=== PATIENT | male | born 1950 | race Caucasian/White ===

== ENCOUNTER → 2023-09-18 13:44 | Outpatient (REF) | payer MEDICARE, OTHER, SELFPAY | LOC: RAD 13:44 | PROVIDERS: ATTENDING PHYSICIAN Internal Medicine | DX: M25.552 Pain in left hip (principal) | CPT/HCPCS: 73502 ==

== ENCOUNTER → 2024-02-27 11:04 | Outpatient (REF) | payer MEDICARE, OTHER, SELFPAY | LOC: RCS 11:04 | PROVIDERS: ATTENDING PHYSICIAN Nurse Practitioner; FAMILY PHYSICIAN Internal Medicine | DX: Z95.2 Presence of prosthetic heart valve (principal) | CPT/HCPCS: 93306 ==

== ENCOUNTER 2024-03-26 23:53 | Emergency (ER) | payer MEDICARE, OTHER, SELFPAY ==
[2024-03-26 23:56] VITALS: BP 155/69
--- NOTE | 2024-03-27 00:03 | ED.GENMED ---
Addendum entered and electronically signed by Silvina Burgess NP 03/30/24 09:24:
Spoke with pt daughter who states pt has had similar symptoms since discharge, has f/u appointment today with [facility].
Original Note:
History of Present Illness
General
Chief Complaint: Blood Pressure Problem
Source: patient and family (daughter at bedside to translate)
Exam Limitations: none
Time Seen by Provider: 03/27/24 00:03
Nursing documentation reviewed up to this point in time: agreed with
History of Present Illness
History of Present Illness:
74-year-old male with history of aortic valve replacement 2020, CAD, cardiac stents 2017, HTN, HLD, BPH, NIDDM, depression presents with h/o chest pain 5/10 'like someone squeezing my heart' started 03/25 took NTG and Clonidine 0.1 mg and took his BP
which remained normal. 5 hours ago (8 p.m.) developed similar CP and took NTG @ 8 p.m and 9:30 p.m. and Clonidine 0.1 mg and BP was high 195/95 and 185/90. He is usually normotensive 130/. Pain went from 8/10 to now 6/10. Denies n/v/d, denies
diaphoresis, lightheadedness. Denies SOB or abdominal pain.
Pt states pain has been occurring at rest. No exertional component as he was in the pool yesterday with no pain, walking several times daily with no pain.
Past History
Past History
ED Past Medical History: CAD, HTN, Hypercholesterolemia, NIDDM, Other (Colon polyps with GI bleed after removal, stopped blood thinners after that) and Other
ED Past Surgical History: Appendectomy, Cardiac (Stents X 2, TAVR) and Other (hernia repair)
Social History
Tobacco: Former smoker
Alcohol: Occasional
Personal:
Living: with family
Review of Systems
Review of Systems
Allergies reviewed?: Yes
All Other Systems: ROS reviewed and negative except as documented in HPI and ROS
Constitutional: Denies fever or fatigue
Respiratory: Denies trouble breathing
Cardiac: Reports chest pain; Denies diaphoresis, palpitations or syncope
ABD/GI: Denies abdominal pain, nausea, vomiting, diarrhea or anorexia
: Reports difficulty voiding (chronic); Denies dysuria or frequency
Musculoskeletal: Reports no symptoms
Skin: Reports no symptoms
Neurological: Reports no symptoms
Phy Exam
Physical Exam
Physical Exam:
GENERAL: No acute distress. A&Ox3.
CONSTITUTIONAL: Afebrile.
EYES: PERRL, conjunctivae normal
ENMT: moist mucus membranes, Pharynx nl
RESPIRATORY: Regular respirations, nonlabored, lungs clear.
CARDIOVASCULAR: Regular rate and rhythm, no murmurs, no rubs.
GI: Soft, nontender, normal BS
MUSCULOSKELETAL: Moves with ease. Well perfused. No edema
SKIN: Warm, dry, pink
PSYCH: Normal mood and affect. Well kept, interactive and appropriate
NEUROLOGIC: Awake, alert and oriented. No focal neurological deficits
Course
Orders/Labs/Results
Orders:
Orders
03/27/24 00:00
Electrocardiogram (*1) Urgent
Reason for Study: Other
Other Reason for Exam: Respiratory Distress
Cardiac Monitoring- Treatment ONCE
EKG- Treatment ONCE
IV Insert/Care/Rem.- Treatment PRN
CR Chest - 2 Views Urgent
Comment:
Reason For Exam: respiratory distress
O2 Therapy [RESP] Urgent
Titrate/Wean O2 to maintain O2 sat greater than (%): 93
Special Instructions: TO MAINTAIN CONTINUOUS O2 SATS >/= 93%
Pulse Ox/cont/shift [RESP] Urgent
Quantity: 1
Special Instructions: continuous pulse ox
03/27/24 00:16
Complete Blood Count/With Diff Urgent
Comprehensive Metabolic Panel Urgent
NT-proBNP Urgent
Troponin I Urgent
03/27/24 01:39
Acetaminophen [Tylenol] 650 mg .ROUTE .STK-MED ONE
03/27/24 01:41
Acetaminophen [Tylenol] 650 mg PO NOW STA
Abnormal Lab Results
03/27/24
00:16
RBC 3.84 L 10^6/uL
(4.70-6.10)
Hgb 12.5 L g/dL
(13.0-18.0)
Hct 35.5 L %
(39.0-52.0)
MCH 32.6 H pg
(27.0-31.0)
Abs Immat Gran (auto) 0.1 H 10^3/uL
(0-0.05)
Immature Gran % 0.7 H %
(0-0.5)
Glucose 142 H mg/dl
(70-99)
Total Protein 6.1 L g/dl
(6.3-8.2)
03/27/24 00:16
03/27/24 00:16
Vital Signs
Initial and Last Documented VS:
Initial Vital Signs
Temp Pulse Resp BP Pulse Ox
98.2 F 52 20 155/69 97
03/26/24 23:56 03/26/24 23:56 03/26/24 23:56 03/26/24 23:56 03/26/24 23:56
Last Documented Vital Signs
Temp Pulse Resp BP Pulse Ox
98.2 F 52 25 136/74 95
03/26/24 23:56 03/27/24 01:45 03/27/24 01:45 03/27/24 01:30 03/27/24 01:30
MDM/Problems Addressed
Differential Diagnosis Includes:
NH, angina, unstable angina, GERD
MDM/Problems Addressed:
74-year-old male with history of TAVR 2020, CAD, cardiac stents 2017, HTN, HLD, BPH, NIDDM, GERD, depression presents with h/o chest pain 5/10 'like someone squeezing my heart' started 03/25 took NTG and Clonidine 0.1 mg and took his BP which remained
normal. 5 hours ago developed similar CP and took NTG @ 8 p.m and 9:30 p.m. and Clonidine 0.1 mg and BP was high 195/95 and 185/90. He is usually normotensive 130/. Pain went from 03/28 to now 01/26. Denies n/v/d, denies diaphoresis, lightheadedness.
Denies SOB or abdominal pain.
He does take his omeprazole daily
Pt states pain has been occurring at rest. No exertional component as he was in the pool yesterday with no pain, walking several times daily with no pain.
EKG: Sinus bradycardia heart rate 50
1:00 AM
CBC unremarkable
CMP unremarkable
Chest x-ray NAD
Troponin WNL
BP 143/61
Review of records: Patient had echocardiogram on 02/27/2024 which was unremarkable. EF 65 to 70%
1:20 AM:
Patient states chest pain is minimal at this time, 2/10 located just under his left nipple
Cardiac work appears completely unremarkable
Patient discussed with Dr. Pérez who agrees patient can be discharged home and his information was sent to the cardiac hotline
Patient and daughter are comfortable with this plan
Chronic conditions affecting care: DM, HTN and CAD
*Critical Care Note
Total Time (30-74mins, 75-104mins- exclusive of procedures): Not Applicable
ED Attending Note
-
Portions of this chart may have been created with voice recognition software.� Occasional wrong word or��sound alike� substitutions may have occurred due to the inherent limitations of voice recognition software.
Discharge Plan
Departure
Patient Disposition: Home (Routine Discharge)
Date of Disposition: 03/27/24
Time of Disposition: 01:25
Patient with high blood pressure during this ER visit?: No
Condition: Good
Discharge Problem:
Atypical chest pain
Instructions: Chest Pain That Is Not Caused by the Heart (DC), Chest Pain CBC Follow Up
Prescriptions:
No Action
atorvastatin 40 MG tablet
40 mg PO QPM
nifedipine 90 MG tablet extended release 24hr
90 mg PO DAILY Qty: 30 0RF
valsartan 320 MG tablet
320 mg PO QPM
acetaminophen 325 MG tablet
650 mg PO Q6HPRN PRN (Reason: mild pain, fever, headache) 0RF
clonidine HCl 0.1 mg Tablet
0.1 mg PO DAILY PRN (Reason: if SBP>160/80)
nitroglycerin 0.4 mg Tablet, Sublingual
0.4 mg SUBLINGUAL Q5-15M PRN (Reason: chest pain)
finasteride 5 mg Tablet
5 mg PO DAILY
cyanocobalamin (vitamin B-12) 1,000 mcg Tablet
1,000 mcg PO DAILY
metformin 500 mg Tablet
500 mg PO BID
ferrous sulfate 325 mg (65 mg iron) Tablet
325 mg PO DAILY
omeprazole 20 mg Capsule,Delayed Release(Dr/Ec)
20 mg PO DAILY
aspirin 81 mg Tablet,Chewable
81 mg PO DAILY
cholecalciferol (vitamin D3) [Vitamin D3] 50 mcg (2,000 unit) Capsule
50 mcg PO DAILY
metoprolol succinate 50 mg tablet extended release 24 hr
50 mg PO DAILY
Referrals:
Henrik Choe MD [Active] - As needed
NONE,* [Active] -
Activity Restrictions/Additional Instructions:
As we discussed, there is nothing in your workup here tonight that indicates you are having a heart attack or that the pain is being caused by your heart.
I sent your information to the cardiology group and someone should be contacting you later today or Saturday for a follow-up appointment.
Return here immediately for chest pain that gets worse or is associated with breaking out in a sweat, nausea or vomiting, feeling lightheaded or radiates to the back, neck or down the arm or feeling worse in any way.
Interventions
Interventions:
*Risk Screen - Suicide Last Done: 03/27/24 00:09
*General Assessment Last Done: 03/27/24 00:09
*Neglect/Abuse Screening Last Done: 03/27/24 00:09
ED- Fall Risk Assessment Last Done: 03/27/24 00:09
*ED COVID-19 Vaccine History Last Done: 03/27/24 00:09
*Nursing Disposition Last Done: 03/27/24 01:45
ED- Cardiac Assessment Last Done: 03/27/24 00:09
ED- Neurological Assessment Last Done: 03/27/24 00:09
ED- Pulmonary Assessment Last Done: 03/27/24 00:09
Discharge Date and Time
Discharge Date/Time: 03/27/24 01:45
Print Language: Egyptian
[2024-03-27 00:06] VITALS: BP 162/64
[2024-03-27 00:08] VITALS: BP 162/78
[2024-03-27 00:38] LABS: % Basophils 0.4 % (0-2); % Immature Granulocytes 0.7 % (0-0.5); % Monocytes 7.2 % (1.7-9.3); % Neutrophils 66.7 % (42.2-75.2); Absolute Eosinophils 0.1 10^3/uL (0-0.7); Absolute Immature Granulocytes 0.1 10^3/uL (0-0.05); Absolute Lymphocytes 1.6 10^3/uL (1.2-3.4); Absolute Monocytes 0.5 10^3/uL (0.1-0.6); Absolute Neutrophils 4.6 10^3/uL (1.4-6.5); Hematocrit 35.5 % (39.0-52.0); Hemoglobin 12.5 g/dL (13.0-18.0); Mean Corp Hgb Conc. 35.2 g/dL (33.0-37.0); Mean Corpuscular Hgb 32.6 pg (27.0-31.0); Mean Corpuscular Volume 92.4 fL (80.0-94.0); Mean Platelet Volume 9.8 fL (7.4-10.4); Nucleated Red Blood Cells % 0 % (-); Platelet Count 208 10^3/uL (130-400); Red Blood Cell Count 3.84 10^6/uL (4.70-6.10); White Blood Cell Count 6.9 10^3/uL (4.8-10.8)
[2024-03-27 00:42] VITALS: BP 156/62
[2024-03-27 00:43] LABS: ALT (SGPT) 17 U/L (0-50); AST (SGOT) 23 U/L (17-59); Albumin 4.1 g/dl (3.5-5.0); Alkaline Phosphatase 102 U/L (38-126); Blood Urea Nitrogen 19 mg/dl (9-20); Calcium 9.4 mg/dl (8.4-10.2); Carbon Dioxide 23 mmol/L (22-30); Chloride 106 mmol/L (98-107); Glucose 142 mg/dl (70-99); Potassium 4.1 mmol/L (3.5-5.1); Sodium 135 mmol/L (135-145); Total Bilirubin 0.2 mg/dl (0.2-1.3); Total Protein 6.1 g/dl (6.3-8.2); eGFR > 60.00
[2024-03-27 00:56] LABS: NT-proBNP 134 pg/ml; Troponin I < 0.012 ng/ml
[2024-03-27 01:00] VITALS: BP 143/61
[2024-03-27 01:30] VITALS: BP 136/74
[2024-03-27] MEDS: TYLENOL 650 MG PO (01:41)
--- NOTE | 2024-03-30 09:22 | ED.GENMED ---
History of Present Illness
General
Chief Complaint: Blood Pressure Problem
Time Seen by Provider: 03/27/24 00:03
Past History
Past History
ED Past Medical History: CAD, HTN, Hypercholesterolemia, NIDDM, Other (Colon polyps with GI bleed after removal, stopped blood thinners after that) and Other
ED Past Surgical History: Appendectomy, Cardiac (Stents X 2, TAVR) and Other (hernia repair)
Social History
Tobacco: Former smoker
Alcohol: Occasional
Personal:
Living: with family
Course
Orders/Labs/Results
Orders:
Orders
03/27/24 00:00
Electrocardiogram (*1) Urgent
Reason for Study: Other
Other Reason for Exam: Respiratory Distress
Cardiac Monitoring- Treatment ONCE
EKG- Treatment ONCE
IV Insert/Care/Rem.- Treatment PRN
CR Chest - 2 Views Urgent
Comment:
Reason For Exam: respiratory distress
O2 Therapy [RESP] Urgent
Titrate/Wean O2 to maintain O2 sat greater than (%): 93
Special Instructions: TO MAINTAIN CONTINUOUS O2 SATS >/= 93%
Pulse Ox/cont/shift [RESP] Urgent
Quantity: 1
Special Instructions: continuous pulse ox
03/27/24 00:16
Complete Blood Count/With Diff Urgent
Comprehensive Metabolic Panel Urgent
NT-proBNP Urgent
Troponin I Urgent
03/27/24 01:39
Acetaminophen [Tylenol] 650 mg .ROUTE .STK-MED ONE
03/27/24 01:41
Acetaminophen [Tylenol] 650 mg PO NOW STA
Abnormal Lab Results
03/27/24
00:16
RBC 3.84 L 10^6/uL
(4.70-6.10)
Hgb 12.5 L g/dL
(13.0-18.0)
Hct 35.5 L %
(39.0-52.0)
MCH 32.6 H pg
(27.0-31.0)
Abs Immat Gran (auto) 0.1 H 10^3/uL
(0-0.05)
Immature Gran % 0.7 H %
(0-0.5)
Glucose 142 H mg/dl
(70-99)
Total Protein 6.1 L g/dl
(6.3-8.2)
03/27/24 00:16
03/27/24 00:16
Vital Signs
Initial and Last Documented VS:
Initial Vital Signs
Temp Pulse Resp BP Pulse Ox
98.2 F 52 20 155/69 97
03/26/24 23:56 03/26/24 23:56 03/26/24 23:56 03/26/24 23:56 03/26/24 23:56
Last Documented Vital Signs
Temp Pulse Resp BP Pulse Ox
98.2 F 52 25 136/74 95
03/26/24 23:56 03/27/24 01:45 03/27/24 01:45 03/27/24 01:30 03/27/24 01:30
ED Attending Note
-
Portions of this chart may have been created with voice recognition software.� Occasional wrong word or��sound alike� substitutions may have occurred due to the inherent limitations of voice recognition software.
Discharge Plan
Departure
Patient Disposition: Home (Routine Discharge)
Date of Disposition: 03/27/24
Time of Disposition: 01:25
Patient with high blood pressure during this ER visit?: No
Condition: Good
Discharge Problem:
Atypical chest pain
Instructions: Chest Pain That Is Not Caused by the Heart (DC), Chest Pain CBC Follow Up
Prescriptions:
No Action
atorvastatin 40 MG tablet
40 mg PO QPM
nifedipine 90 MG tablet extended release 24hr
90 mg PO DAILY Qty: 30 0RF
valsartan 320 MG tablet
320 mg PO QPM
acetaminophen 325 MG tablet
650 mg PO Q6HPRN PRN (Reason: mild pain, fever, headache) 0RF
clonidine HCl 0.1 mg Tablet
0.1 mg PO DAILY PRN (Reason: if SBP>160/80)
nitroglycerin 0.4 mg Tablet, Sublingual
0.4 mg SUBLINGUAL Q5-15M PRN (Reason: chest pain)
finasteride 5 mg Tablet
5 mg PO DAILY
cyanocobalamin (vitamin B-12) 1,000 mcg Tablet
1,000 mcg PO DAILY
metformin 500 mg Tablet
500 mg PO BID
ferrous sulfate 325 mg (65 mg iron) Tablet
325 mg PO DAILY
omeprazole 20 mg Capsule,Delayed Release(Dr/Ec)
20 mg PO DAILY
aspirin 81 mg Tablet,Chewable
81 mg PO DAILY
cholecalciferol (vitamin D3) [Vitamin D3] 50 mcg (2,000 unit) Capsule
50 mcg PO DAILY
metoprolol succinate 50 mg tablet extended release 24 hr
50 mg PO DAILY
Referrals:
Henrik Choe MD [Active] - As needed
NONE,* [Active] -
Activity Restrictions/Additional Instructions:
As we discussed, there is nothing in your workup here tonight that indicates you are having a heart attack or that the pain is being caused by your heart.
I sent your information to the cardiology group and someone should be contacting you later today or Saturday for a follow-up appointment.
Return here immediately for chest pain that gets worse or is associated with breaking out in a sweat, nausea or vomiting, feeling lightheaded or radiates to the back, neck or down the arm or feeling worse in any way.
Interventions
Interventions:
*Risk Screen - Suicide Last Done: 03/27/24 00:09
*General Assessment Last Done: 03/27/24 00:09
*Neglect/Abuse Screening Last Done: 03/27/24 00:09
ED- Fall Risk Assessment Last Done: 03/27/24 00:09
*ED COVID-19 Vaccine History Last Done: 03/27/24 00:09
*Nursing Disposition Last Done: 03/27/24 01:45
ED- Cardiac Assessment Last Done: 03/27/24 00:09
ED- Neurological Assessment Last Done: 03/27/24 00:09
ED- Pulmonary Assessment Last Done: 03/27/24 00:09
Discharge Date and Time
Discharge Date/Time: 03/27/24 01:45
Print Language: Burkinan
== END 2024-03-27 01:45 | disposition home or self-care (01) ==
LOC: EMR 23:53
PROVIDERS: EMERGENCY PHYSICIAN Student in an Organized Health Care Education/Training Program; FAMILY PHYSICIAN Internal Medicine
DX: R07.89 Other chest pain (principal); E11.9 Type 2 diabetes mellitus without complications; E78.00 Pure hypercholesterolemia, unspecified; I10 Essential (primary) hypertension; I25.10 Atherosclerotic heart disease of native coronary artery without angina pectoris; K21.9 Gastro-esophageal reflux disease without esophagitis; N40.0 Benign prostatic hyperplasia without lower urinary tract symptoms; Z79.899 Other long term (current) drug therapy; Z87.19 Personal history of other diseases of the digestive system; Z87.891 Personal history of nicotine dependence; Z90.49 Acquired absence of other specified parts of digestive tract; Z95.2 Presence of prosthetic heart valve; Z95.5 Presence of coronary angioplasty implant and graft
CPT/HCPCS: 99283; 71046; 80053; 83880; 84484; 85025; 93005